=== PATIENT | male | born 1970 ===

== ENCOUNTER 2017-02-18 11:44 | Emergency (ER) | payer MEDICAID, OTHER ==
[2017-02-18 12:05] VITALS: BMI 34.3
[2017-02-18 12:08] VITALS: RESP 16; TEMP 98.4
--- NOTE | 2017-02-18 12:45 | ED PDOC ---
Arrival/HPI - General Chief Complaint: Dizziness/Lightheaded Time Seen by Provider: 02/18/17 12:25 Historian: Patient - History of Present Illness Narrative History of Present Illness (Text): 02/18/17 12:40 A 46 year old male, who denies any past medical history, presents to the emergency department complaining of lower back pain for the past 4 days. Patient notes mild discomfort near his rectum while experiencing back pain. Patient reports mild constipation and dizziness but denies any fever, nausea, vomiting, abdominal pain, chest pain, shortness of breath. PMD: Dr. Alvarez 02/18/17 19:51 Time/Duration: Other (4 days) Symptom Course: Unchanged Quality: Other Context: Other Past Medical History - Provider Review Nursing Documentation Reviewed: Yes - Past History Past History: No Previous - Infectious Disease Hx of Infectious Diseases: None - Tetanus Immunization Tetanus Immunization: Unknown - Psychiatric Hx Depression: No Hx Emotional Abuse: No Hx Physical Abuse: No Hx Substance Use: No - Anesthesia Hx Anesthesia: No - Suicidal Assessment Feels Threatened In Home Enviroment: No Family/Social History - Physician Review Nursing Documentation Reviewed: Yes Family/Social History: No Known Family HX Smoking Status: Never Smoked Hx Alcohol Use: No Hx Substance Use: No Allergies/Home Meds Allergies/Adverse Reactions: Allergies No Known Allergies Allergy (Verified 02/18/17 12:05) Home Medications: Home Meds Medication Instructions Recorded Confirmed No Known Home Med 02/18/17 02/18/17 Review of Systems - Physician Review All systems were reviewed & negative as marked: Yes - Review of Systems Constitutional: absent: Fevers Respiratory: absent: SOB Cardiovascular: absent: Chest Pain Gastrointestinal: Constipation. absent: Abdominal Pain, Nausea, Vomiting Musculoskeletal: Back Pain (Lower back pain, discomfort near his rectum) Neurological: Dizziness Physical Exam Vital Signs Reviewed: Yes Vital Signs Temp Pulse Resp BP Pulse Ox 02/18/17 14:00 74 16 158/93 H 97 02/18/17 12:05 98.4 F 87 16 136/81 98 Temperature: Afebrile Blood Pressure: Normal Pulse: Regular Respiratory Rate: Normal Appearance: Positive for: Well-Appearing, Non-Toxic, Comfortable Pain Distress: None Mental Status: Positive for: Alert and Oriented X 3 Finger Stick Blood Glucose: 106 - Systems Exam Head: Present: Atraumatic, Normocephalic Pupils: Present: PERRL Extroacular Muscles: Present: EOMI Conjunctiva: Present: Normal Mouth: Present: Moist Mucous Membranes Neck: Present: Normal Range of Motion Respiratory/Chest: Present: Clear to Auscultation, Good Air Exchange. No: Respiratory Distress, Accessory Muscle Use Cardiovascular: Present: Regular Rate and Rhythm, Normal S1, S2. No: Murmurs Abdomen: Present: Normal Bowel Sounds. No: Tenderness, Distention, Peritoneal Signs Rectal: Present: Normal Rectal Tone, Other (Chaperoned by scribe. also entire area of perineum examined. normal skin color. no lesions or hematomas.). No: Occult Blood, Rectal Tenderness, Gross Blood, Melena, Hemorrhoids, Fissures, Nodule/Mass/Lesions Back: Present: Normal Inspection. No: CVA Tenderness, Midline Tenderness, Paraspinal Tenderness Upper Extremity: Present: Normal Inspection, Normal ROM, NORMAL PULSES. No: Cyanosis, Edema Lower Extremity: Present: Normal Inspection, NORMAL PULSES, Normal ROM. No: Edema, CALF TENDERNESS Neurological: Present: GCS=15, CN II-XII Intact, Speech Normal, Motor Func Grossly Intact, Normal Sensory Function, Normal Cerebellar Funct Skin: Present: Warm, Dry, Normal Color. No: Rashes Psychiatric: Present: Alert, Oriented x 3, Normal Insight, Normal Concentration Medical Decision Making ED Course and Treatment: 02/18/17 12:40 Impression: A 46 year old male with lower back pain and concurrent discomfort near rectum. Patient notes mild constipation and dizziness. Plan: -- LS spine xray -- Labs -- Toradol and IV fluids -- Reassess and disposition Progress Notes: Report Date : 02/18/2017 14:10:32 Procedure: Lumbar spine xray Dictator : Jerome Bell MD Impression: No acute compression fractures. 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 Mild multilevel degenerative spondylosis. 02/18/17 14:12 Labs reviewed, normal results. Patient is not orthostatic. pt made aware of xray results. pt stable for dc. stable gait noted. instructed to follow up with pcp in 1-2 days. 02/18/17 14:21 On re-evaluation, patient feels better and is in no acute distress. I have discussed the results and plan with the patient, who expresses understanding. Patient in agreement with plan to be discharged home. Patient is stable for discharge. Patient was instructed to follow up with physician or return if symptoms worsen or new concerning symptoms arise. 02/18/17 19:51 - Lab Interpretations Lab Results: 02/18/17 13:00 02/18/17 13:00 Lab Results 02/18/17 13:00: WBC 9.1 D, RBC 4.70, Hgb 14.6, Hct 43.1, MCV 91.7, MCH 31.1, MCHC 33.9, RDW 12.8, Plt Count 216, MPV 10.0, Gran % 64.7, Lymph % (Auto) 25.5, Stewart % (Auto) 7.5 H, Eos % (Auto) 1.9, Baso % (Auto) 0.4, Gran # 5.90, Lymph # 2.3, Stewart # 0.7 H, Eos # 0.2, Baso # 0.04, Sodium 138, Potassium 4.6, Chloride 101, Carbon Dioxide 27, Anion Gap 15, BUN 13, Creatinine 0.8, Est GFR ( Amer) > 60, Est GFR (Non-Af Amer) > 60, Random Glucose 99, Calcium 9.7, Total Bilirubin 0.6, AST 25, ALT 27, Alkaline Phosphatase 62, Total Protein 7.9, Albumin 4.5, Globulin 3.4, Albumin/Globulin Ratio 1.3 I have reviewed the lab results: Yes - RAD Interpretation Radiology Orders: 02/18/17 12:48 LS SPINE AP/LAT [RAD] Stat - Medication Orders Current Medication Orders: Discontinued Medications Sodium Chloride (Sodium Chloride 0.9%) 1,000 mls @ 200 mls/hr IV .Q5H [facility] Last Admin: 02/18/17 13:15 Dose: 200 MLS/HR eMAR Start Stop Document 02/18/17 13:15 EQ (Rec: 02/18/17 13:[address] [facility] [id number]) Intravenous Solution Start Date 02/18/17 Start Time 13:15 Ketorolac Tromethamine (Toradol) 30 mg IV ONCE ONE Stop: 02/18/17 12:50 Last Admin: 02/18/17 13:15 Dose: 30 MG eMAR Start Stop Document 02/18/17 13:15 EQ (Rec: 02/18/17 13:[address] [facility] [id number]) Intravenous Solution Start Date 02/18/17 Start Time 13:15 - Scribe Statement The provider has reviewed the documentation as recorded by the Scribe Cyndie Bee Provider Scribe Attestation: All medical record entries made by the Scribe were at my direction and personally dictated by me. I have reviewed the chart and agree that the record accurately reflects my personal performance of the history, physical exam, medical decision making, and the department course for this patient. I have also personally directed, reviewed, and agree with the discharge instructions and disposition. Disposition/Present on Arrival - Present on Arrival Any Indicators Present on Arrival: No History of DVT/PE: No History of Uncontrolled Diabetes: No Urinary Catheter: No History of Decub. Ulcer: No History Surgical Site Infection Following: None - Disposition Have Diagnosis and Disposition been Completed?: Yes Diagnosis: Back pain Disposition: HOME/ ROUTINE Disposition Time: 14:00 Patient Plan: Discharge Condition: GOOD Discharge Instructions (ExitCare): Back Pain (ED) Additional Instructions: follow up with your primary doctor in 1-2 days. return to the ED with any worsening or concerning symptoms. Referrals: Laurie Alvarez DO [Primary Care Provider] - Follow up with primary
[2017-02-18] MEDS ORDERED: Sodium Chloride 0.9% 1,000 ML IV SCH (13:00)
[2017-02-18 13:16] LABS: ADD MANUAL DIFF? NO
[2017-02-18 13:18] LABS: BASO # 0.04 K/mm3 (0.0-2.0); BASO % 0.4 % (0.0-3.0); EOS # 0.2 (0.0-0.7); EOS % 1.9 % (1.5-5.0); GRAN % 64.7 % (50.0-68.0); HEMATOCRIT 43.1 % (42.0-52.0); LYMPH # 2.3 (1.2-3.4); LYMPH % 25.5 % (22.0-35.0); MEAN CELL VOLUME 91.7 fL (80.0-105.0); MEAN CORPUSCULAR HEMOGLOBIN 31.1 pg (25.0-35.0); MEAN CORPUSCULAR HGB CONC 33.9 g/dl (31.0-37.0); MONO # 0.7 (0.1-0.6); MONO % 7.5 % (1.0-6.0); PLATELET COUNT 216 10^3/uL (120.0-450.0); RED CELL DISTRIBUTION WIDTH 12.8 % (11.5-14.5); WHITE BLOOD COUNT 9.1 10^3/ul (4.5-11.0)
[2017-02-18 13:28] LABS: ALB/GLOB RATIO 1.3 (1.1-1.8); ALKALINE PHOSPHATASE 62 U/L (38-133); ALT/SGPT 27 U/L (7-56); AST/SGOT 25 U/L (15-59); BILIRUBIN,TOTAL 0.6 mg/dL (0.2-1.3); BLOOD UREA NITROGEN 13 mg/dL (7-21); CALCIUM 9.7 mg/dL (8.4-10.5); CARBON DIOXIDE 27 mmol/L (21-33); CHLORIDE 101 mmol/L (95-110); GFR AFRICAN-AMERICAN > 60; GLUCOSE,RANDOM 99 mg/dL (70-110); POTASSIUM 4.6 mmol/L (3.6-5.0); SODIUM 138 mmol/L (132-148); TOTAL PROTEIN 7.9 g/dL (5.8-8.3)
--- NOTE | 2017-02-18 14:12 | RAD ---
Lumbar spine 02/18/2017. History: Back pain. AP and lateral views of the lumbar spine performed. No prior. Findings: The current study reveals no acute compression fractures no retropulsed fragments. Minor chronic anterior stature loss of the L2, L3, L4 and to a lesser degree L1 segments. . Incidental note made of spina bifida occulta involving the S1 segment. Mild multilevel degenerative spondylosis. Changes include varying degrees of minor posterior disc space narrowing with small anterolateral osteophyte formation. The facets are also somewhat prominent L5-S1 at through the L3-L4 levels in decreasing order of the severity. Impression: No acute compression fractures. 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 Mild multilevel degenerative spondylosis.
[2017-02-18 15:27] VITALS: BP 158/93; PULSE 74; O2SAT 97
--- NOTE | 2017-02-18 19:53 | CARD ---
APPROVED REPORT EKG Measurement Heart [id number] <Conclusion> Normal sinus rhythm Septal infarct, age undetermined Abnormal ECG
== END 2017-02-18 15:29 | disposition home or self-care (01) ==
LOC: ED 11:44
DX: M54.5 Low back pain (principal)
CPT/HCPCS: 72100; 80053; 85025; 93005; 99285; J1885; J7040